=== PATIENT | female | born 1965 | race Caucasian/White ===

== ENCOUNTER 2020-01-05 10:45 | Emergency (ER) | payer OTHER ==
[~2020-01-05] VITALS: Ht 157.5 cm; Wt 62.6 kg
[2020-01-05 10:53] VITALS: BP 132/95
--- NOTE | 2020-01-05 11:02 | NUR ---
WAIT AT LOBBY. HANDED ON URINE CUP.
--- NOTE | 2020-01-05 12:10 | NUR ---
54 Y/O FEMALE COMES FROM HOME, PRESENTS TO ED C/O RIGHT SIDE HEAD ACHE X3 DAYS. PT STATES PAIN IS CONSTANT AND SHARP, 5/10 RADIATING TO RIGHT NECK, EAR AND EYE. DENIES VISION CHANGES, N/V/D OR FEVER. PT STETS " I FEEL LIKE THE ROOM IS SPINING WHEN I PUT MY HEAD STRAIGHT SO I KEEP IT TILTED TO THE TO THE LEFT". PT STATES SHE TOOK MECLIZINE THIS MORNING AT 09:40 FOR THE DIZZINESS, BUT WAS INEFECTIVE. AOX4, SPEACH, CLEAR, PUPILS 3MM, PERRLA, STENGTH EQUAL BILAT UPPER/LOWER EXTREMITIES. UNSTEADY GAIT R/T DIZZINESS. PMH: HTN NKDA
--- NOTE | 2020-01-05 12:29 | NUR ---
Dr. Milligan is evaluating the patient at bedside.
[2020-01-05] MEDS ORDERED: MECLIZINE 25 MG TAB PO ONE (12:50)
--- NOTE | 2020-01-05 13:20 | NUR ---
Dr. Milligan is reevaluating the patient at bedside.
[2020-01-05 13:40] VITALS: BP 132/95
--- NOTE | 2020-01-05 13:40 | NUR ---
Patient discharged with v/s stable. Written and verbal after care instructions given and explained. Patient alert, oriented and verbalized understanding of instructions. Ambulatory with steady gait. All questions addressed prior to discharge. ID band removed. Patient advised to follow up with PMD. Rx of TYLENOL, MECLIZINE given. Patient educated on indication of medication including possible reaction and side effects. Opportunity to ask questions provided and answered.
== END 2020-01-05 13:40 | disposition home or self-care (01) ==
LOC: MED 10:45
DX: H83.09 Labyrinthitis, unspecified ear (principal); H92.01 Otalgia, right ear; I10 Essential (primary) hypertension
CPT/HCPCS: 81002; 99282; J8597

== ENCOUNTER 2021-01-06 13:27 | Emergency (ER) | payer OTHER ==
[~2021-01-06] VITALS: Ht 157.5 cm; Wt 65.8 kg
[2021-01-06 13:42] VITALS: BP 148/88
--- NOTE | 2021-01-06 13:52 | NUR ---
PT AMBULATED TO BED 8
--- NOTE | 2021-01-06 14:15 | NUR ---
PATIENT PRESENTS TO ED WITH BL CALF PAIN. PT COMPLAINS PAIN STARTED 2 WEEKS AGO. PT STATES LIPOSUCTION 5 MONTHS AGO. PT DESCRIBES PAIN HEAVY, ITCHY, UNCOMFORTABLE, STATES PAIN WORSENS WITH ACTIVITY AND STANDING TOO LONG. EXPERIENCES RELIEF WITH REST. DENIES N/V/D; SKIN ON LEGS IS RED/HOT/DRY, EDEMA; AAOX4 WITH EVEN AND STEADY GAIT; LUNGS CLEAR BL; HR EVEN AND REGULAR; PT DENIES ANY FEVER, CP, SOB, OR COUGH AT THIS TIME; PATIENT STATES PAIN OF 4/10 AT THIS TIME; VSS; PATIENT POSITIONED FOR COMFORT; HOB ELEVATED; BEDRAILS UP X2; BED DOWN. ER MD MADE AWARE OF PT STATUS. PMH HTN, MIGRAINES, LIPOSUCTION 5 MONTHS AGO ALLERGIES: NKA MEDS: LOSARTAN, AMLODIPINE, SUMATRIPTAN
--- NOTE | 2021-01-06 14:54 | NUR ---
Patient discharged with v/s stable. Written and verbal after care instructions ABOUT EDEMA given and explained. Patient verbalized understanding. Ambulatory with steady gait. All questions addressed prior to discharge. Advised to follow up with PMD.
--- NOTE | 2021-01-06 14:55 | NUR ---
Melchor bailey in [facility] - 01/06/21 at 1506 by AKUA MOVED TO A
== END 2021-01-06 14:54 | disposition home or self-care (01) ==
LOC: MED 13:27
DX: I10 Essential (primary) hypertension (principal); R60.0 Localized edema; G43.909 Migraine, unspecified, not intractable, without status migrainosus
CPT/HCPCS: 99281

== ENCOUNTER 2023-10-07 19:03 | Emergency (ER) | payer OTHER ==
[~2023-10-07] VITALS: Ht 157.5 cm; Wt 66.9 kg
[2023-10-07 19:05] VITALS: BP 171/89; PULSE 68; RESP 14; TEMP 97.5; O2SAT 97
[2023-10-07] MEDS: IBUPROFEN 800 MG TAB PO ONE (19:14)
--- NOTE | 2023-10-07 19:16 | NUR ---
RECEIVED REPORT FROM NELLIE HOWE. CONTINUE PLAN OF CARE AT THIS TIME.
--- NOTE | 2023-10-07 19:16 | NUR ---
Pt report given to MARGO BALLARD. Transfer of care at this time.
[2023-10-07 19:37] VITALS: O2SAT 98
--- NOTE | 2023-10-07 19:40 | NUR ---
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 PT STATES OCCURRED YESTERDAY AT WORK. STATES PAIN LEVE 10/10. PT STATES UNABLE TO MOVE FINGER. SWELLING NOTED TO AFFECTED DIGIT. CALL LIGHT WITHIN REACH. SAFETY MEASURES IN PLACE. NKDA NO MED HX
[2023-10-07 19:59] VITALS: BP 153/77; PULSE 64; RESP 14; TEMP 98.1; O2SAT 99
--- NOTE | 2023-10-07 19:59 | NUR ---
Patient discharged with v/s stable. Written and verbal after care instructions given and explained. Patient verbalized understanding. Ambulatory with steady gait. All questions addressed prior to discharge. Advised to follow up with PMD.
== END 2023-10-07 19:59 | disposition home or self-care (01) ==
LOC: MED 19:03
DX: S69.91XA Unspecified injury of right wrist, hand and finger(s), initial encounter (principal); X58.XXXA Exposure to other specified factors, initial encounter; Y93.89 Activity, other specified; Y92.89 Other specified places as the place of occurrence of the external cause; Y99.8 Other external cause status
CPT/HCPCS: 73130; 99283